=== PATIENT | female | born 1940 | race African-American/Black ===

== ENCOUNTER 2016-05-22 05:21 | Inpatient (IN) ==
[~2016-05-22 05:21] MED LIST: LORazepam 1 MG TABLET PO ONE
[2016-05-22] MEDS ORDERED: VANCOMYCIN INJ 1,000 MG in SODIUM CHLORIDE 0.9% 250 ML IV ONE (06:00)
[2016-05-22] MEDS ORDERED: FAMOTIDINE 20 MG TABLET PO ONE (07:00)
--- NOTE | 2016-05-22 07:10 | History and Physical Update ---
History and Physical Update - History and Physical H&P was reviewed, the patient examined and there: are no changes in the patients condition since last H&P was completed.
[2016-05-22] MEDS ORDERED: ceFAZolin 1,000 MG VIAL ONE (07:18)
[2016-05-22] MEDS ORDERED: VANCOMYCIN 1,000 MG VIAL ONE (07:18)
[2016-05-22] MEDS ORDERED: LORazepam 1 MG TABLET ONE (07:19)
[2016-05-22] MEDS ORDERED: SODIUM CHLORIDE 0.9% 100 ML IV ONE ×2 (07:19→11:39)
[2016-05-22] MEDS ORDERED: FAMOTIDINE 20 MG TABLET ONE (07:19)
[2016-05-22] MEDS ORDERED: METOPROLOL TARTRATE 100 MG TABLET PO ONE (07:30)
[2016-05-22] MEDS ORDERED: TRANEXAMIC ACID 1,000 MG/10 ML VIAL IV ONE (08:08)
[2016-05-22] MEDS: LACTATED RINGERS 1,000 ML IV SCH (08:12)
[2016-05-22] MEDS ORDERED: MORPHINE 10 MG/10 ML VIAL ONE (09:00)
[2016-05-22] MEDS ORDERED: PROPOFOL 200 MG/20 ML VIAL IV ONE (09:31)
[2016-05-22] MEDS ORDERED: LIDOCAINE 2% 5 ML VIAL ONE (09:31)
[2016-05-22 11:20] LABS: Apearance,Urine CLEAR (Clear); Bacteria,Urine Occasional /HPF (Few); Bilirubin,Urine Negative (Negative); Blood, Urine Negative (Negative); Glucose,Urine (UA) Negative (Negative); Ketones,Urine Negative (Negative); Mucus,Urine Occasional /LPF (Occasional); Nitrite,Urine Negative (Negative); Protein,Urine Negative; RBC,Urine <1 /HPF (0-4); Urine Color Yellow (Yellow); Urine Urobilinogen < 2.0 EU/DL (0.2-1.0); WBC,Urine <1 /HPF (0-6)
[2016-05-22] MEDS ORDERED: MIDAZOLAM 2 MG/2 ML VIAL ONE (11:38)
--- NOTE | 2016-05-22 13:49 | XRay Report ---
Exam: XR hip OR RT single view right hip Date: 05/22/2016 Indication: Right hip prosthesis Comparison: None Technical: AP view Findings: Surgical presentation present over the medial aspect of the proximal thigh. A cerclage wire and femoral prosthesis present. Acetabular cup components intact. Subcutaneous air is present over the right lateral left hip. The superior inferior pubic ramus are intact. Impression: 1. Right total hip prosthesis present with a cerclage wire over the proximal trochanteric region. 2. Subcutaneous air 3. No acute fracture present. PROCEDURE INTERPRETED AT [facility] [place] DEPARTMENT OF RADIOLOGY Final Report Signed by: Dr. Jameel Mckeon
[2016-05-22] MEDS ORDERED: diphenhydrAMINE CAP 25 MG CAPSULE PO PRN (16:18)
[2016-05-22] MEDS ORDERED: ONDANSETRON 4 MG/2 ML VIAL IV PRN (16:18)
[2016-05-22] MEDS ORDERED: TEMAZEPAM 7.5 MG CAPSULE PO PRN (16:18)
[2016-05-22] MEDS ORDERED: BISACODYL 10 MG SUPP RECTAL PRN (16:18)
[2016-05-22] MEDS ORDERED: PROMETHAZINE 25 MG/1 ML VIAL IM PRN (16:18)
[2016-05-22] MEDS ORDERED: LACTULOSE 20 GM/30 ML UDCUP PO PRN (16:18)
[2016-05-22] MEDS ORDERED: HYDROmorphone 2 MG/1 ML VIAL IV PRN (16:18)
[2016-05-22] MEDS: HYDROmorphone PCA 30 MG/30 ML SYRINGE IV SCH (16:44)
--- NOTE | 2016-05-22 17:47 | Orthopedic Progress Note ---
Orthopedics - Subjective Interval history: Comfortable postop. Neurovascularly intact. Discussed. Up in a.m. Exam - Constitutional Vitals: Period Temp Pulse Resp BP Sys/King Pulse Ox Last 24 Hr 97.0 F-97.4 F 48-61 12-20 100-150/50-87 92-100
--- NOTE | 2016-05-22 17:58 | Pulmonology Consult Note ---
Assessment and Plan (1) Status post right hip replacement Status: Acute Assessment and plan: Patient has had previous left hip replacement and right knee replacement. She is now postop and is alert. She did have some nausea and vomiting when I saw her. Likely related to pain medications. Will need early ambulation. Current Visit: Yes (2) Essential hypertension Status: Acute Assessment and plan: Blood pressure well controlled with current medicines. Current Visit: Yes (3) History of urinary incontinence Status: Acute Assessment and plan: Her urine looks okay. Need to watch for a urinary tract infection. Current Visit: Yes History of Present Illness Chief complaint: Postop right hip replacement History of present illness: Ms. Tracy is a 75 year old female who is a regular patient of Dr. Mccloud. He follows her for hypertension degenerative arthritis and urinary incontinence. 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 She has had some trouble with her memory. She was seen [address] Mccloud for surgical clearance and everything was acceptable and her labs and physical exam. She had a right total hip replacement this morning. She is presently in the bed somewhat nauseated but no other new complaints. Home Medications Medication Instructions Recorded Confirmed Type Aspirin [Ecotrin] 2 tablet PO DAILY 05/18/16 05/22/16 History Biotin 10 mg PO DAILY 05/18/16 05/22/16 History Calcium Carbonate/Vitamin D3 1 each PO DAILY 05/18/16 05/22/16 History [Calcium 600 + Vit D Tablet] Cholecalciferol (Vitamin D3) 2,000 unit PO DAILY 05/18/16 05/22/16 History [Vitamin D3] Estradiol Tab [Estrace Tab] 1 mg PO BID 05/18/16 05/22/16 History Estropipate 1.5 mg PO BID 05/18/16 05/22/16 History Meloxicam 15 mg PO DAILY 05/18/16 05/22/16 History Metoprolol Tartrate 100 mg PO DAILY 05/18/16 05/22/16 History amLODIPine [Norvasc] 5 mg PO DAILY 05/18/16 05/22/16 History hydroCHLOROthiazide 12.5 mg PO DAILY 05/18/16 05/22/16 History [Hydrochlorothiazide] Alendronate Sodium 70 mg PO Q7D 05/22/16 05/22/16 History Amitriptyline [Elavil] 75 mg PO BEDTIME 05/22/16 05/22/16 History Donepezil [Aricept] 5 mg PO BEDTIME 05/22/16 05/22/16 History Allergies Allergy/AdvReac Type Severity Reaction Status Date / Time No Known Allergies Allergy Verified 05/22/16 06:43 12 point system: reviewed and no additional remarkable complaints except as stated - Genitourinary Genitourinary: Present: difficulty urinating (Difficulty controlling urination) - Musculoskeletal Musculoskeletal: Present: arthralgias - Neurological Neurological: Present: other (Difficulty with sleep) Exam (Pulmonay) H&P - Constitutional Vitals: Period Temp Pulse Resp BP Sys/King Pulse Ox Last 24 Hr 97.0 F-97.4 F 48-61 12-20 100-150/50-87 92-100 Exam: Vital signs normal. Pulse rate 50. Pupils react to light. Throat is clear. Neck supple no bruits. Chest is clear equal breath sounds. Heart normal rate and rhythm no murmurs. Abdomen soft nontender no masses. Bowel sounds present. Extremities no clubbing cyanosis or edema. Calves nontender. Bandage on the right hip. Medical,Surgical,& Family Hx - Medical History Cardio: History of: Hypertension HEENT: History of: Eye Problem (GLASSES) No history of: Ear Problem, Dental Problems, Glaucoma Reproductive: Comment Only: Reproductive Problems (HX CA FALLOPIAN TUBE) - Surgical History Reproductive Surgeries: Surgical HX of;: Hysterectomy (REMOVAL FALLOPIAN TUBE - CA) Orthopedic Surgeries: Surgical HX of;: Orthopedic Surgery (R KNEE SCOPE), Total Hip Replacement (RIGHT) - Family History Family History: Reports;: Family Heart Disease (DAD), Family Stroke (BROTHER) - Social History Smoking Status: Never smoker Frequency of Alcohol Use: None Type of Drug Use: None
[2016-05-22] MEDS: DOCUSATE SODIUM 100 MG CAPSULE PO SCH (20:53)
[2016-05-22] MEDS: DONEPEZIL 5 MG TABLET PO SCH (20:53)
[2016-05-22] MEDS: AMITRIPTYLINE 75 MG TABLET PO SCH (20:53)
[2016-05-22] MEDS: ESTROPIPATE 1.5 MG TABLET PO SCH (20:53)
[2016-05-22] MEDS: ESTRADIOL 1 MG TABLET PO SCH (23:05)
--- NOTE | 2016-05-23 01:50 | Operative Note ---
DATE: 05/22/2016 PREOPERATIVE DIAGNOSIS: OSTEOARTHRITIS, RIGHT HIP. POSTOPERATIVE DIAGNOSIS: OSTEOARTHRITIS, RIGHT HIP. OPERATIVE PROCEDURE: RIGHT TOTAL HIP (SROM). SURGEON: Yayo Reyez Jr., MD [employer] ARTILLERY: Kaitlyn. ANESTHESIA: Spinal. INDICATIONS: A 75-year-old white female with worsening symptoms of pain related to her severe osteo arthritis of right hip. This is becoming more significant limiting her ability to ambulate and acti vities of daily living to such an extent that she presented recently for evaluation, has decided to proceed with elective hip replacement. She has done very well from her previous left hip replacemen t about 5 years ago. OPERATIVE PROCEDURE: The patient was taken to the operating room and under spinal anesthetic, posit ioned in the left lateral decubitus position. The right hip and lower extremity were prepped and dr aped in the usual sterile manner. She received Vancomycin and Ancef preoperatively. A curvilinear incision was made over the posterolateral aspect of the right hip. Sharp dissection was carried star n through skin and subcutaneous tissue. The IT band was split and the gluteus in line with the fibe rs. The hip was internally rotated and the short rotators were reflected off the back of the proxim al femur. The capsule was split and tagged for later repair. The acetabulum was exposed after disl ocation and resection of the femoral head. The acetabulum was sequentially reamed up to 49 and a 50 cup press-fit in place, secured with two screws, and a 10-degree polyethylene liner placed. The pr oximal femur was prepared for the SROM components due to the small canal diameter, ultimately select ing an 11 femoral stem, the 14B small collar was also chosen in a 0 head. A small fracture was note d from the posterior medial calcar towards the trochanter, this was addressed using a single cable. After removal of the trial components, permanent implants were inserted and 0 head again selected. This resulted in equalization of limb lengths and good stability on the table. The wounds were the n irrigated and closed over two 1/8-inch Hemovac drains in standard fashion using #1 Vicryl for the posterior capsule and arthrotomy, 2-0 Vicryl for the subcutaneous layer, and dorcas for skin. Intr aoperative films confirming satisfactory postop position. She was rolled supine, abduction pillow p laced, taken to recovery room in stable condition.
[2016-05-23] MEDS: LACTATED RINGERS 1,000 ML IV SCH (04:50)
[2016-05-23 05:37] LABS: Basophils % 0.4 % (0.0-0.8); Eosinophils % 0.1 % (0.00-10.9); Hematocrit 30.8 VOL% (35.7-47.0); Immature Granulocytes % 0.3 %; Immature Granulocytes Absolute 0.03 #; Lymphocytes # 0.8 10*3/uL (1.4-4.0); Lymphocytes % 8.9 % (21.3-54.2); Mean Corpuscular HGB Conc 32.5 GM/DL (32-36); Mean Corpuscular Hemoglobin 33 PG (27-34); Mean Corpuscular Volume 101.3 FL (87-102); Mean Platelet Volume 9.8 FL (9.6-12.0); Monocytes # 0.8 10*3/uL (0.11-0.8); Monocytes % 8.4 % (1.7-12.7); Neutrophils # 7.4 10*3/uL (1.4-7.4); Neutrophils % 81.9 % (38.7-73.9); Platelet Count 291 T/CUMM (130-400); Red Blood Count 3.04 MC/CUMM (3.8-5.5); Red Cell Distribution Width 14.5 % (9.3-17.3)
[2016-05-23 06:09] LABS: Calcium 8.1 MG/DL (8.5-10.1); Osmolality,Calculated 289.8 MOS/KG (273-304); Potassium 4.4 MMOL/L (3.5-5.1)
--- NOTE | 2016-05-23 07:45 | Orthopedic Progress Note ---
Orthopedics - Subjective Interval history: Comfortable and drain removed H&H stable hemoglobin 10 ready for PT Exam - Constitutional Vitals: Period Temp Pulse Resp BP Sys/King Pulse Ox Last 24 Hr 97.0 F-98.8 F 48-72 12-18 100-126/50-69 92-100 Results - Labs CBC & BMP: 05/23/16 05:12 05/23/16 05:12
--- NOTE | 2016-05-23 08:51 | Pulmonology Progress Note ---
Pulmonary - PN: Subj Interval history: This 75-year-old black female had a right total hip replacement yesterday. She has had a previous left total hip and right total knee replacement. She had some nausea yesterday afternoon but that has gotten better. She is having some pain in the hip. She will start doing weightbearing tomorrow. Denies shortness of breath. No calf pains. Exam (Progress Note) - Constitutional Vitals: Period Temp Pulse Resp BP Sys/King Pulse Ox Last 24 Hr 97.0 F-98.8 F 48-72 12-18 100-126/50-69 92-100 Exam: Patient's alert oriented vital signs normal. Pupils react to light. Throat is clear. Neck supple no bruits. Chest sounds clear equal breath sounds. Heart normal rate rhythm no murmurs. Abdomen soft nontender no masses. Extremities no clubbing cyanosis or edema. Calves nontender. Bandage on right hip. Results - Labs CBC & BMP: 05/23/16 05:12 05/23/16 05:12 Lab Results: I have reviewed the past 24 hour labs Assessment and Plan (1) Status post right hip replacement Status: Acute Assessment and plan: Patient has had previous left hip replacement and right knee replacement. She is now postop and is alert. She did have some nausea and vomiting when I saw her. Likely related to pain medications. Will need early ambulation. 05/23/2016 having some pain in the right hip as expected. No fever or signs of DVT. Current Visit: Yes (2) Essential hypertension Status: Acute Assessment and plan: Blood pressure well controlled with current medicines. 05/23/2016 blood pressure well controlled. Current Visit: Yes (3) History of urinary incontinence Status: Acute Assessment and plan: Her urine looks okay. Need to watch for a urinary tract infection. 05/23/2016 no dysuria. Current Visit: Yes
[2016-05-23] MEDS ORDERED: BIOTIN 10 MG PO SCH (09:00)
[2016-05-23] MEDS: ASPIRIN EC 81 MG TABLET PO SCH (09:16)
[2016-05-23] MEDS: DOCUSATE SODIUM 100 MG CAPSULE PO SCH ×2 (09:17→20:20)
[2016-05-23] MEDS: hydroCHLOROthiazide 12.5 MG CAPSULE PO SCH (09:17)
[2016-05-23] MEDS: CALCIUM (CARBONATE)/VITAMIN D 600 MG-400 UNIT TABLET PO SCH (09:17)
[2016-05-23] MEDS: METOPROLOL TARTRATE 100 MG TABLET PO SCH (09:17)
[2016-05-23] MEDS: MELOXICAM 7.5 MG TABLET PO SCH (09:18)
[2016-05-23] MEDS: amLODIPine 5 MG TABLET PO SCH (09:18)
[2016-05-23] MEDS: CHOLECALCIFEROL 1,000 UNIT TABLET PO SCH (09:19)
[2016-05-23] MEDS: ESTROPIPATE 1.5 MG TABLET PO SCH ×2 (09:21→20:19)
[2016-05-23] MEDS: ESTRADIOL 1 MG TABLET PO SCH ×2 (09:21→20:19)
[2016-05-23] MEDS: FONDAPARINUX 2.5 MG/0.5 ML SYRINGE SUBCUT SCH (16:54)
[2016-05-23] MEDS: AMITRIPTYLINE 75 MG TABLET PO SCH (20:20)
[2016-05-23] MEDS: DONEPEZIL 5 MG TABLET PO SCH (20:20)
--- NOTE | 2016-05-23 21:27 | Anesthesia ---
Anesthesia Post OP - Post Ansesthetic Evaluation Patient seen in post op: Yes Resp: within normal limits CV: within normal limits Mental: within normal limits Temp: within normal limits [id number]: within normal limits Nausea and Vomiting: within normal limits Pain: within normal limits
[2016-05-23] MEDS: HYDROmorphone PCA 30 MG/30 ML SYRINGE IV SCH (23:10)
[2016-05-24] MEDS: LACTATED RINGERS 1,000 ML IV SCH ×2 (00:45→06:12)
[2016-05-24 05:27] LABS: Basophils # 0.1 10*3/uL (0.0-0.2); Basophils % 0.6 % (0.0-0.8); Eosinophils # 0.2 10*3/uL (0.0-0.87); Eosinophils % 2.5 % (0.00-10.9); Hematocrit 26.9 VOL% (35.7-47.0); Immature Granulocytes % 0.4 %; Immature Granulocytes Absolute 0.04 #; Lymphocytes % 9.9 % (21.3-54.2); Mean Corpuscular HGB Conc 33.5 GM/DL (32-36); Mean Corpuscular Hemoglobin 33 PG (27-34); Mean Corpuscular Volume 97.1 FL (87-102); Mean Platelet Volume 10.2 FL (9.6-12.0); Monocytes % 10.2 % (1.7-12.7); Neutrophils # 7.4 10*3/uL (1.4-7.4); Neutrophils % 76.4 % (38.7-73.9); Platelet Count 257 T/CUMM (130-400); Red Blood Count 2.77 MC/CUMM (3.8-5.5); Red Cell Distribution Width 13.8 % (9.3-17.3); White Blood Count 9.7 T/CUMM (4-12)
--- NOTE | 2016-05-24 08:30 | Orthopedic Progress Note ---
Orthopedics - Subjective Interval history: Hemoglobin 9 comfortable did well with PT yesterday still wanted to go home. If continues probably home by the weekend Exam - Constitutional Vitals: Period Temp Pulse Resp BP Sys/King Pulse Ox Last 24 Hr 97.8 F-98.6 F 64-77 18-19 97-118/55-73 92-97 Results - Labs CBC & BMP: 05/24/16 04:27 05/23/16 05:12
--- NOTE | 2016-05-24 08:59 | Pulmonology Progress Note ---
Pulmonary - PN: Subj Interval history: This 75-year-old black female had a right total hip replacement yesterday. She has had a previous left total hip and right total knee replacement. She had some nausea yesterday afternoon but that has gotten better. She is having some pain in the hip. She will start doing weightbearing tomorrow. Denies shortness of breath. No calf pains. 05/24/16 patient was unable to ambulate in the villalba yesterday. Plans are for rehab at home. No further nausea. Exam (Progress Note) - Constitutional Vitals: Period Temp Pulse Resp BP Sys/King Pulse Ox Last 24 Hr 97.8 F-98.6 F 64-77 18-19 97-118/55-73 92-97 Exam: Patient's alert oriented vital signs normal. Pupils react to light. Throat is clear. Neck supple no bruits. Chest sounds clear equal breath sounds. Heart normal rate rhythm no murmurs. Abdomen soft nontender no masses. Extremities no clubbing cyanosis or edema. Calves nontender. Bandage on right hip. Little change from yesterday. Results - Labs CBC & BMP: 05/24/16 04:27 05/23/16 05:12 Lab Results: I have reviewed the past 24 hour labs Assessment and Plan (1) Status post right hip replacement Status: Acute Assessment and plan: Patient has had previous left hip replacement and right knee replacement. She is now postop and is alert. She did have some nausea and vomiting when I saw her. Likely related to pain medications. Will need early ambulation. 05/23/2016 having some pain in the right hip as expected. No fever or signs of DVT. 05/24/16 tolerating walking in the villalba. No calf pains. Current Visit: Yes (2) Essential hypertension Status: Acute Assessment and plan: Blood pressure well controlled with current medicines. 05/23/2016 blood pressure well controlled. 05/24/16 blood pressure well controlled. Systolic around 120. Current Visit: Yes (3) History of urinary incontinence Status: Acute Assessment and plan: Her urine looks okay. Need to watch for a urinary tract infection. 05/23/2016 no dysuria. 05/24/16 this has not been a problem this admission. Current Visit: Yes
[2016-05-24] MEDS: CALCIUM (CARBONATE)/VITAMIN D 600 MG-400 UNIT TABLET PO SCH (10:18)
[2016-05-24] MEDS: hydroCHLOROthiazide 12.5 MG CAPSULE PO SCH (10:18)
[2016-05-24] MEDS: ASPIRIN EC 81 MG TABLET PO SCH (10:18)
[2016-05-24] MEDS: DOCUSATE SODIUM 100 MG CAPSULE PO SCH ×2 (10:18→20:23)
[2016-05-24] MEDS: ESTROPIPATE 1.5 MG TABLET PO SCH ×2 (10:19→20:23)
[2016-05-24] MEDS: MELOXICAM 7.5 MG TABLET PO SCH (10:19)
[2016-05-24] MEDS: METOPROLOL TARTRATE 100 MG TABLET PO SCH (10:19)
[2016-05-24] MEDS: amLODIPine 5 MG TABLET PO SCH (10:19)
[2016-05-24] MEDS: CHOLECALCIFEROL 1,000 UNIT TABLET PO SCH (10:20)
[2016-05-24] MEDS: FONDAPARINUX 2.5 MG/0.5 ML SYRINGE SUBCUT SCH (10:20)
[2016-05-24] MEDS: ESTRADIOL 1 MG TABLET PO SCH ×2 (10:25→20:23)
--- NOTE | 2016-05-24 11:16 | Pathology Report from [facility] ---
ACCESSION # : [id number] PATIENT NAME : Aimee Zelaya ORDERING DR : JASPAL JEREZ JR, MD CLINICAL HX: RT hip osteoarthritis POST-OP DX: Same SPECIMEN INFO: RT hip bone & tissue GROSS DESCRIPTION: Received in formalin labeled "AIMEE ZELAYA" is a femoral head measuring 4.3 x 4.6 x 5.9 cm. The articular surface is yellow christian and focally degenerative with osteophyte formation and areas of bone eburnation measure up to 1.5 cm. The cut surface is smooth and pink red with no bone softening appreciated. Specialty Therapist sections are submitted in one cassette following decalcification DIAGNOSIS FOR AIMEE ZELAYA: RIGHT HIP BONE & TISSUE: Gross and microscopic findings consistent with osteoarthritis. SERVICE DATE: 05/22/2016 REPORT DATE: 05/24/2016 PATHOLOGIST: Mauricio Perez III, M.D. MTDD
[2016-05-24] MEDS: DONEPEZIL 5 MG TABLET PO SCH (20:23)
[2016-05-24] MEDS: AMITRIPTYLINE 75 MG TABLET PO SCH (20:23)
[2016-05-25 05:41] LABS: Basophils # 0.1 10*3/uL (0.0-0.2); Basophils % 0.6 % (0.0-0.8); Eosinophils # 0.4 10*3/uL (0.0-0.87); Eosinophils % 3.7 % (0.00-10.9); Hematocrit 25.7 VOL% (35.7-47.0); Hemoglobin 8.7 GM/DL (12.0-16.0); Immature Granulocytes % 0.4 %; Immature Granulocytes Absolute 0.04 #; Lymphocytes % 9.8 % (21.3-54.2); Mean Corpuscular HGB Conc 33.9 GM/DL (32-36); Mean Corpuscular Hemoglobin 33 PG (27-34); Mean Corpuscular Volume 97.7 FL (87-102); Monocytes # 0.8 10*3/uL (0.11-0.8); Monocytes % 7.7 % (1.7-12.7); Neutrophils # 8.2 10*3/uL (1.4-7.4); Neutrophils % 77.8 % (38.7-73.9); Platelet Count 261 T/CUMM (130-400); Red Blood Count 2.63 MC/CUMM (3.8-5.5); Red Cell Distribution Width 13.9 % (9.3-17.3); White Blood Count 10.5 T/CUMM (4-12)
--- NOTE | 2016-05-25 09:26 | Orthopedic Progress Note ---
Orthopedics - Subjective Interval history: Hemoglobin 8.7 ambulating in villalba with PT touchdown to partial weightbearing. Does not want to go to rehabilitation we'll plan on home with home health tomorrow after PT discussed. Exam - Constitutional Vitals: Period Temp Pulse Resp BP Sys/King Pulse Ox Last 24 Hr 97.6 F-98.4 F 62-83 16-18 102-117/50-58 93-97 Results - Labs CBC & BMP: 05/25/16 05:04 05/23/16 05:12 Specialty Discharge - Follow Up or Referrals Follow up with: Yayo Reyez Jr., MD [Physician] - 06/20/16 1:00 pm
--- NOTE | 2016-05-25 09:32 | Discharge Summary ---
Hospital Course - Hospital Course Hospital Course: Elective right total hip uncomplicated course discharged home with home health Diagnosis - Discharge Diagnosis (1) Osteoarthritis of right hip Status: Acute Specialty Discharge - Follow Up or Referrals Follow up with: Yayo Reyez Jr., MD [Physician] - 06/20/16 1:00 pm Discharge Plan - Discharge Data Disposition: Home Health Service Condition at Discharge: Stable Discharge Diet: advance to your usual diet Activity: ambulate only with your walker, as per physical therapy, increase activity as tolerated Hygiene: may shower, keep area(s) dry Weight Bearing at Discharge: partial weight bearing (touchdown to 25% with hip precautions) Driving: not until seen by doctor - Discharge Medications New HYDROcodone/ACETAMIN 7.5-325 [Kountze 7.5-325] 2 tablet PO Q4H PRN #30 tablet PRN Reason: Moderate Pain unrelieved by 1 Multivitamin (Intrinsic) [Trinsicon] 1 capsule PO DAILY capsule Continue Calcium Carbonate/Vitamin D3 [Calcium 600 + Vit D Tablet] 1 each PO DAILY amLODIPine [Norvasc] 5 mg PO DAILY hydroCHLOROthiazide [Hydrochlorothiazide] 12.5 mg PO DAILY Amitriptyline [Elavil] 75 mg PO BEDTIME Alendronate Sodium 70 mg PO TU Biotin 10 mg PO DAILY Cholecalciferol (Vitamin D3) [Vitamin D3] 2,000 unit PO DAILY Metoprolol Tartrate 100 mg PO DAILY Meloxicam 15 mg PO DAILY Estropipate 1.5 mg PO BID Estradiol Tab [Estrace Tab] 1 mg PO BID Aspirin [Ecotrin] 2 tablet PO DAILY Donepezil [Aricept] 5 mg PO BEDTIME - Follow Up or Referral Follow Up: Yayo Reyez Jr., MD [Physician] - 06/20/16 1:00 pm - Forms/Instructions Additional Discharge Instructions: Discharge to home with home health and home PT mobilizing with touchdown to partial weightbearing, 25%. Hip flexion precautions. Brian out and wound Steri-Stripped June 05. Follow- up with me 4 weeks Exam - Constitutional Vitals: Period Temp Pulse Resp BP Sys/King Pulse Ox Last 24 Hr 97.8 F-99.2 F 52-95 16-18 100-162/55-75 88-98 DS: Provider Date of admission: 05/22/16 05:21 Primary care physician: Jameel Mccloud, Attending physician on admission: Yaoy Reyez Jr., MD Consults: 05/22/16 14:03 Consult to Physician [CONS] Routine Comment: Consulting Provider: Kevin Stevens Consulting Provider Notified: Yes When should Consulting Provider be notified: Now Person Notified: adama ramirez Date Notified: 05/22/16 Time Notified: 14:04 05/22/16 16:18 Consult to Case Mgmt/Social Srvs [CONS] Routine Reason for Case Mgmt/Social Srvs: Rehab Home Health Equipment Consult Comment: Bedside Commode, deliver to room 338 today; Pt 5ft 5in 177lb ; D/C tomorrow Consult to Occupational Therapy [CONS] Routine Reason for Occupational Therapy: Evaluate and Treat Consult Comment: ADL's Consult to Physical Therapy [CONS] Routine Reason for Physical Therapy: Evaluate and Treat Gait Training Consult Comment: [id number]% 05/22/16 17:15 Consult to Pharmacy [CONS] Routine Reason for Pharmacy Consult: Adjust Meds Renal Funct Discharging clinician: Yayo Reyez Jr., MD
[2016-05-25] MEDS: MELOXICAM 7.5 MG TABLET PO SCH (09:51)
[2016-05-25] MEDS: ESTROPIPATE 1.5 MG TABLET PO SCH ×2 (09:51→20:39)
[2016-05-25] MEDS: CHOLECALCIFEROL 1,000 UNIT TABLET PO SCH (09:51)
[2016-05-25] MEDS: amLODIPine 5 MG TABLET PO SCH (09:52)
[2016-05-25] MEDS: hydroCHLOROthiazide 12.5 MG CAPSULE PO SCH (09:52)
[2016-05-25] MEDS: ESTRADIOL 1 MG TABLET PO SCH ×2 (09:52→20:38)
[2016-05-25] MEDS: ASPIRIN EC 81 MG TABLET PO SCH (09:52)
[2016-05-25] MEDS: DOCUSATE SODIUM 100 MG CAPSULE PO SCH ×2 (09:52→20:39)
[2016-05-25] MEDS: MULTIVITAMIN (INTRINSIC) CAPSULE PO SCH (09:52)
[2016-05-25] MEDS: CALCIUM (CARBONATE)/VITAMIN D 600 MG-400 UNIT TABLET PO SCH (09:52)
[2016-05-25] MEDS: METOPROLOL TARTRATE 100 MG TABLET PO SCH (09:54)
--- NOTE | 2016-05-25 09:54 | Pulmonology Progress Note ---
Pulmonary - PN: Subj Interval history: This 75-year-old black female had a right total hip replacement yesterday. She has had a previous left total hip and right total knee replacement. She had some nausea yesterday afternoon but that has gotten better. She is having some pain in the hip. She will start doing weightbearing tomorrow. Denies shortness of breath. No calf pains. 05/24/16 patient was able to ambulate in the villalba yesterday. Plans are for rehab at home. No further nausea. 05/25/2016 patient continuing to ambulate without difficulty. She does have some pain. Plans are for discharge. Please call if needed further. Exam (Progress Note) - Constitutional Vitals: Period Temp Pulse Resp BP Sys/King Pulse Ox Last 24 Hr 97.6 F-98.4 F 62-83 16-18 102-117/50-58 93-97 Exam: Patient's alert oriented vital signs normal. Pupils react to light. Throat is clear. Neck supple no bruits. Chest sounds clear equal breath sounds. Heart normal rate rhythm no murmurs. Abdomen soft nontender no masses. Extremities no clubbing cyanosis or edema. Calves nontender. Bandage on right hip. Results - Labs CBC & BMP: 05/25/16 05:04 05/23/16 05:12 Lab Results: I have reviewed the past 24 hour labs Assessment and Plan (1) Status post right hip replacement Status: Acute Assessment and plan: Patient has had previous left hip replacement and right knee replacement. She is now postop and is alert. She did have some nausea and vomiting when I saw her. Likely related to pain medications. Will need early ambulation. 05/23/2016 having some pain in the right hip as expected. No fever or signs of DVT. 05/24/16 tolerating walking in the villalba. No calf pains. 05/25/2016 continuing ambulation. Plans for home health to complete physical therapy Current Visit: Yes (2) Essential hypertension Status: Acute Assessment and plan: Blood pressure well controlled with current medicines. 05/23/2016 blood pressure well controlled. 05/24/16 blood pressure well controlled. Systolic around 120. 05/25/2016 blood pressures look good. Current Visit: Yes (3) History of urinary incontinence Status: Acute Assessment and plan: Her urine looks okay. Need to watch for a urinary tract infection. 05/23/2016 no dysuria. 05/24/16 this has not been a problem this admission. Current Visit: Yes Specialty Discharge - Follow Up or Referrals Follow up with: Yayo Reyez Jr., MD [Physician] - 06/20/16 1:00 pm
[2016-05-25] MEDS: FONDAPARINUX 2.5 MG/0.5 ML SYRINGE SUBCUT SCH (10:35)
[2016-05-25] MEDS: DONEPEZIL 5 MG TABLET PO SCH (20:39)
[2016-05-25] MEDS: AMITRIPTYLINE 75 MG TABLET PO SCH (20:39)
[2016-05-25] MEDS: MAGNESIUM HYDROXIDE SUSP 30 ML UDCUP PO PRN (23:55)
[2016-05-26] MEDS: MAGNESIUM HYDROXIDE SUSP 30 ML UDCUP PO PRN (07:37)
--- NOTE | 2016-05-26 09:43 | Orthopedic Progress Note ---
Assessment and Plan (1) Status post right hip replacement Status: Acute Assessment and plan: Discharged home today Current Visit: Yes Orthopedics - Subjective Interval history: No new complaints. Pain is controlled. On exam her dressings clean and dry, she is neurovascularly intact in the right lower extremity Exam - Constitutional Vitals: Period Temp Pulse Resp BP Sys/King Pulse Ox Last 24 Hr 97.8 F-99.2 F 52-95 16-18 100-162/55-75 88-98 Results - Labs CBC & BMP: 05/25/16 05:04 05/23/16 05:12 Specialty Discharge - Follow Up or Referrals Follow up with: Yayo Reyez Jr., MD [Physician] - 06/20/16 1:00 pm
[2016-05-26] MEDS: CALCIUM (CARBONATE)/VITAMIN D 600 MG-400 UNIT TABLET PO SCH (10:20)
[2016-05-26] MEDS: amLODIPine 5 MG TABLET PO SCH (10:20)
[2016-05-26] MEDS: MULTIVITAMIN (INTRINSIC) CAPSULE PO SCH (10:20)
[2016-05-26] MEDS: CHOLECALCIFEROL 1,000 UNIT TABLET PO SCH (10:20)
[2016-05-26] MEDS: METOPROLOL TARTRATE 100 MG TABLET PO SCH (10:20)
[2016-05-26] MEDS: ASPIRIN EC 81 MG TABLET PO SCH (10:20)
[2016-05-26] MEDS: hydroCHLOROthiazide 12.5 MG CAPSULE PO SCH (10:20)
[2016-05-26] MEDS: MELOXICAM 7.5 MG TABLET PO SCH (10:20)
[2016-05-26] MEDS: ESTROPIPATE 1.5 MG TABLET PO SCH (10:21)
[2016-05-26] MEDS: DOCUSATE SODIUM 100 MG CAPSULE PO SCH (10:21)
[2016-05-26] MEDS: ESTRADIOL 1 MG TABLET PO SCH (10:21)
[2016-05-26] MEDS: FONDAPARINUX 2.5 MG/0.5 ML SYRINGE SUBCUT SCH (10:22)
--- NOTE | 2016-05-26 12:13 | Pulmonology Progress Note ---
Pulmonary - PN: Subj Interval history: This 75-year-old black female had a right total hip replacement yesterday. She has had a previous left total hip and right total knee replacement. She had some nausea yesterday afternoon but that has gotten better. She is having some pain in the hip. She will start doing weightbearing tomorrow. Denies shortness of breath. No calf pains. 05/24/16 patient was able to ambulate in the villalba yesterday. Plans are for rehab at home. No further nausea. 05/25/2016 patient continuing to ambulate without difficulty. She does have some pain. Plans are for discharge. Please call if needed further. 05/26/2016 patient ambulating in the villalba. Ready for discharge. No problems from a medical standpoint. Exam (Progress Note) - Constitutional Vitals: Period Temp Pulse Resp BP Sys/King Pulse Ox Last 24 Hr 97.8 F-99.2 F 67-95 16-18 100-162/55-75 88-98 Exam: Patient's alert oriented vital signs normal. Pupils react to light. Throat is clear. Neck supple no bruits. Chest sounds clear equal breath sounds. Heart normal rate rhythm no murmurs. Abdomen soft nontender no masses. Extremities no clubbing cyanosis or edema. Calves nontender. Bandage on right hip. Little change from before. Results - Labs CBC & BMP: 05/25/16 05:04 05/23/16 05:12 Lab Results: I have reviewed the past 24 hour labs Assessment and Plan (1) Status post right hip replacement Status: Acute Assessment and plan: Patient has had previous left hip replacement and right knee replacement. She is now postop and is alert. She did have some nausea and vomiting when I saw her. Likely related to pain medications. Will need early ambulation. 05/23/2016 having some pain in the right hip as expected. No fever or signs of DVT. 05/24/16 tolerating walking in the villalba. No calf pains. 05/25/2016 continuing ambulation. Plans for home health to complete physical therapy 05/26/2016 home to continue physical therapy. Current Visit: Yes (2) Essential hypertension Status: Acute Assessment and plan: Blood pressure well controlled with current medicines. 05/23/2016 blood pressure well controlled. 05/24/16 blood pressure well controlled. Systolic around 120. 05/25/2016 blood pressures look good. 05/26/2016 continue home medications for blood pressure Current Visit: Yes (3) History of urinary incontinence Status: Acute Assessment and plan: Her urine looks okay. Need to watch for a urinary tract infection. 05/23/2016 no dysuria. 05/24/16 this has not been a problem this admission. 05/26/2016 follow up with urology as required. Current Visit: Yes Specialty Discharge - Follow Up or Referrals Follow up with: Yayo Reyez Jr., MD [Physician] - 06/20/16 1:00 pm
[2016-05-26 12:43] VITALS: BP 117/67
[2016-05-29] MEDS ORDERED: FOSAMAX 70 MG PO SCH (07:00)
== END 2016-05-26 15:56 | disposition home health service (06) | DRG 470 ==
LOC: N.SDSINP 05:21 → N.3E 13:16
PROVIDERS: ADMIT Orthopaedic Surgery; ATTEND Orthopaedic Surgery